=== PATIENT | male | born 1965 | race Hispanic/Latino ===

== ENCOUNTER → 2018-07-05 | Outpatient (CLI) | payer BC | LOC: GMAE 17:02 | PROVIDERS: ATTEND Family Medicine | DX: E03.9 Hypothyroidism, unspecified (principal) ==

== ENCOUNTER → 2018-11-09 | Outpatient (CLI) | payer BC | LOC: GMAE 10:50 | PROVIDERS: ATTEND Family Medicine | DX: R94.5 Abnormal results of liver function studies (principal); E03.9 Hypothyroidism, unspecified ==

== ENCOUNTER → 2018-11-11 | Outpatient (CLI) | payer BC ==
--- NOTE | 2018-11-12 09:41 | US ---
EXAM DESCRIPTION: Liver: ULTRASOUND. CLINICAL HISTORY: ABNORMAL RESULTS OF LIVER FUNCTION STUDIES COMPARISON: Ultrasound liver 11/27/2015. TECHNIQUE: Transabdominal scannin-dimensional and Doppler modes. FINDINGS: Gallbladder: normal size, shape, echogenicity; no intraluminal stones or sludge. No fluid around the gallbladder. No wall thickening. 1.8 mm. Non-tender with transducer pressure. Common bile duct: caliber 4.8 mm within normal limits. Liver: Increased dense echogenicity; limited visualization of the posterior liver and capsule. Contour liver capsule smooth where seen. No fluid around the liver. Intrahepatic biliary ducts normal caliber. Doppler hepatopedal flow portal vein. xxx Long axis right lobe 16.5 cm. Pancreas: normal size and echogenicity. Duct not seen. . Aorta and right kidney were not scanned. IMPRESSION: Liver upper normal limits in size with steatosis. Normal ducts and vascularity flow direction. Smooth capsule with no ascites. Pancreas negative. Normal gallbladder and common bile duct. Nontender. Electronically signed by: Shane Goff MD 11/12/2018 9:39 AM [facility]
== END ==
LOC: US 09:30
PROVIDERS: ATTEND Family Medicine
DX: R94.5 Abnormal results of liver function studies (principal); K76.0 Fatty (change of) liver, not elsewhere classified

== ENCOUNTER → 2019-08-11 | Outpatient (CLI) | payer BC ==
--- NOTE | 2019-08-11 14:27 | US ---
EXAM DESCRIPTION: Soft Tissue,Extremity: ULTRASOUND. CLINICAL HISTORY: 54 years Male PAIN IN LEFT ARM. Injured while picking up heavy object. Less pain and using more since initial injury COMPARISON: None Available. TECHNIQUE: Transcutaneous scanning: Glover-scale and Doppler modes. FINDINGS: On physical examination, the skin over the mid biceps demonstrates ecchymosis. Palpable mass corresponding to ecchymosis. Fluid collection noted on the anterior biceps muscle is irregular. Edema also noted in the muscle. Distal biceps tendon and proximal long head and short head biceps tendons are intact. Normal appearance of muscle fibers proximal and distal in the musculotendinous junctions. IMPRESSION: Partial tear of the biceps brachia muscle distal to the short head and long head junction. Tendons are intact. Consider MRI scan if pain continues, swelling increases, or loss of function. Electronically signed by: Shane Goff MD 08/11/2019 2:25 PM [facility]
== END ==
LOC: US 09:49
PROVIDERS: ATTEND Family Medicine
DX: S46.112A Strain of muscle, fascia and tendon of long head of biceps, left arm, initial encounter (principal)

== ENCOUNTER 2020-08-10 11:38 | Emergency (ER) | payer BC ==
--- NOTE | 2020-08-10 12:14 | ED.PDOC ---
History of Present Illness - General Chief Complaint: Respiratory Problem Stated Complaint: cough,JACKSON,fatigue,weakness Time Seen by Provider: 08/10/20 12:06 Additional Information: Patient is a 55-year-old male who presents to the ED with his son and with chief complaint of cough. Patient was diagnosed with Covid 2 weeks ago with entire family (son, mom, dad) and patient is complaining of persistent cough and low-grade fever. Symptoms are now worsening, just persistent. Patient presents with family members to make sure that they are not coming down with pneumonia. Patient otherwise feels well and there are no other complaints at this time. - History of Present Illness Allergies/Adverse Reactions: Allergies NO KNOWN ALLERGY Allergy (Verified 08/10/20 12:05) Home Medications: Ambulatory Orders Albuterol Inhaler [Ventolin Hfa Inhaler] 2 puff INH Q4H PRN #1 inh 08/10/20 Azithromycin [Zithromax Z-Cj] 250 mg PO DAILY #6 tab 08/10/20 Metformin HCl [Metformin Hydrochloride E] 1,000 mg PO BID 08/10/20 Review of Systems - Review of Systems Constitutional: States: fever. Denies: chills, weakness EENTM: States: no symptoms reported Respiratory: States: cough, short of breath Cardiology: States: no symptoms reported. Denies: chest pain, palpitations Gastrointestinal/Abdominal: States: no symptoms reported. Denies: abdominal pain, nausea, vomiting All other Systems: Reviewed and Negative Past Medical History (General) - Patient Medical History Hx Stroke: No Hx Congestive Heart Failure: No Hx Diabetes: Yes Surgical History: no surgical history - Vaccination History Hx Influenza Vaccination: Yes Hx Pneumococcal Vaccination: Yes - Social History Hx Tobacco Use: No Family Medical History - Family History Father Family History: Unknown Living Status: Unknown Physical Exam - Physical Exam General Appearance: Alert, Comfortable, No apparent distress, Well Developed, Well Nourished ENT Exam: normal ENT inspection Neck: full range of motion, supple, normal inspection Respiratory: chest non-tender, lungs clear, normal breath sounds, no respiratory distress, no accessory muscle use Cardiovascular/Chest: normal peripheral pulses, regular rate, rhythm, no edema, no gallop, no JVD Gastrointestinal/Abdominal: non tender, soft Extremity: normal inspection, no pedal edema Neurologic: granulator tender II-XII nml as tested, no motor/sensory deficits, alert, normal mood/affect, oriented x 3 Skin Exam: normal color, warm/dry Progress - Progress Progress: 08/10/20 15:37 Patient reassessed and remains feeling well at this time. Patient's ambulatory O2 saturation is acceptable at 94%. Patient's labs are unremarkable and his CT chest does not show PE but does show evidence of Covid pneumonia. Patient has been given IV Rocephin in the ED I will discharge home with Z-Cj and albuterol. I have discussed with patient strict return to ED instructions to include worsening shortness of breath and difficulty breathing. Vital signs stable, patient is NAD and looks clinically well and I believe is safe for discharge with outpatient follow-up. Follow-up instructions, discharge instructions and return to ED precautions discussed with patient. Patient voices understanding and willingness to comply with instructions. All laboratory and radiographic results have been discussed with the patient, and all questions answered. Patient is happy with plan. Departure - Departure Clinical Impression: COVID-19 determined by clinical diagnostic criteria Pneumonia Qualifiers: Pneumonia type: due to unspecified organism Laterality: unspecified laterality Lung location: unspecified part of lung Qualified Code(s): J18.9 - Pneumonia, unspecified organism Disposition: Discharge to Home or Self Care Condition: Fair Departure Forms: ED Discharge - Pt. Copy, Patient Portal Self Enrollment Instructions: Coronavirus Disease 2019 (COVID-19), Pneumonia in Adults Referrals: JEANNE HENRY MD [Primary Care Provider] - 1-5 Days Prescriptions: Albuterol Inhaler [Ventolin Hfa Inhaler] 2 puff INH Q4H PRN #1 inh PRN Reason: Shortness Of Breath/Wheezing Azithromycin [Zithromax Z-Cj] 250 mg PO DAILY #6 tab Home Medications: Ambulatory Orders Albuterol Inhaler [Ventolin Hfa Inhaler] 2 puff INH Q4H PRN #1 inh 08/10/20 Azithromycin [Zithromax Z-Cj] 250 mg PO DAILY #6 tab 08/10/20 Metformin HCl [Metformin Hydrochloride E] 1,000 mg PO BID 08/10/20
--- NOTE | 2020-08-10 13:06 | RAD ---
EXAM DESCRIPTION: Chest,1 View CLINICAL HISTORY: Cough COMPARISON: None Available. TECHNIQUE: One view radiograph of the chest FINDINGS: Cardiac silhouette shows normal heart size. Pulmonary vascularity is within normal limits. Increased alveolar opacities most prominent along the peripheral aspect of the lungs bilaterally. No pleural effusion. No pneumothorax. No acute osseous abnormality. IMPRESSION: Increased alveolar opacities most prominent along the peripheral aspect of both lungs compatible with infectious/inflammatory processes such as pneumonia (including COVID-19 pneumonia). Recommend follow-up chest radiograph to resolution. Electronically signed by: Jose Yates MD 08/10/2020 1:05 PM [facility]
[2020-08-10] MEDS ORDERED: cefTRIAXone SODIUM 1 GM in SODIUM CHL 0.9% 50ML MIN-BAG+ 50 ML IVPB ONE (13:11)
--- NOTE | 2020-08-10 14:56 | CT ---
EXAM DESCRIPTION: CTA Chest CLINICAL HISTORY: 55 years, Male, SOB, elevated DD COMPARISON: None TECHNIQUE: Rapid bolus administration of nonionicIV contrast was performed with thin-section axial scanning of the chest performed in a dynamic fashion. Reconstructed multiplanar and three dimensional MIP and/or VRT images were created on a separate dedicated workstation were reviewed along with the source axial images and stored in the patient's medical record. Stenoses were evaluated using the NASCET criteria. This exam was performed according to our departmental dose-optimization program, which includes automated exposure control, adjustment of the mA and/or kV according to patient size and/or use of iterative reconstruction technique. FINDINGS: Lung faustin are markedly abnormal with patchy peripheral groundglass opacity throughout both lungs are dominantly in the lung bases and peripheral subpleural regions. Pattern is stable with a viral or Covid pneumonitis without associated pleural effusion. Changes are slightly more extensive on the right than the left with moderate elevation of the right hemidiaphragm consistent with eventration. Soft tissue images demonstrate normal thoracic inlet and superior middle mediastinum. Abnormal adenopathy is not apparent. No abnormality below the diaphragms noted except for hepatomegaly and fatty infiltration of the liver. Pulmonary vasculature is well-opacified. No filling defects or obstruction or pulmonary embolus identified. Normal-sized heart. IMPRESSION: 1. Negative CT pulmonary angiogram for pulmonary embolus. 2. Markedly abnormal lung faustin bilaterally with patchy groundglass opacities peripherally both lungs right more extensively than left with some areas of coalescence. The pattern is typical of a viral or Covid pneumonitis. 3. No pleural effusions or adenopathy or dense lobar consolidation seen. Electronically signed by: Yaw Saxena MD 08/10/2020 2:54 PM [facility]
[2020-08-10 15:45] VITALS: BP 132/84
[2020-08-10 16:16] VITALS: TEMP 98.6; O2SAT 94
== END 2020-08-10 15:49 | disposition home or self-care (01) ==
LOC: ER 11:38
DX: U07.1 COVID-19 (principal); J12.89 Other viral pneumonia; E11.9 Type 2 diabetes mellitus without complications; Z79.84 Long term (current) use of oral hypoglycemic drugs; Z79.899 Other long term (current) drug therapy
CPT/HCPCS: 71045; 71275; 80053; 85025; 85379; J0696; J7050